=== PATIENT | male | born 1985 | race Two or more races ===

== ENCOUNTER 2018-08-12 18:13 | Emergency (ER) | payer BC, OTHER ==
[~2018-08-12] VITALS: Ht 185.4 cm; Wt 106.0 kg
[2018-08-12 18:49] VITALS: BP 152/94
[2018-08-12] MEDS ORDERED: ibuprofen tablet 400 MG TABLET PO ONE (18:55)
[2018-08-12] MEDS ORDERED: IBUP-1986 PO (19:27)
== END 2018-08-12 19:29 | disposition home or self-care (01) ==
LOC: ER 18:13
DX: S20.212A Contusion of left front wall of thorax, initial encounter (principal); S40.212A Abrasion of left shoulder, initial encounter; S30.811A Abrasion of abdominal wall, initial encounter; V29.9XXA Motorcycle rider (driver) (passenger) injured in unspecified traffic accident, initial encounter; Y93.89 Activity, other specified; Y92.89 Other specified places as the place of occurrence of the external cause; Y99.8 Other external cause status
CPT/HCPCS: 71101; 73030; 99284